=== PATIENT | male | born 2000 | race American Indian/Alaskan Native ===

== ENCOUNTER 2021-06-02 13:16 | Inpatient (IN) | payer BC, OTHER ==
--- OUTSIDE RECORDS SUMMARY | 2021-06-02 13:19 | XMS REPORT | Continuity of Care Document ---
:2000 Author Organization [facility] t Address [address] [place] [address] Care Team Providers Name Role Phone Guero Primary Care Physician Problems This patient has no known problems. Allergies, Adverse Reactions, Alerts This patient has no known allergies or adverse reactions. Social History Social Habit Start Date Stop Date Quantity Comments Source Sex Assigned At [facility] Tobacco use and 2017-01-31 2017-01-31 Never used [facility] - exposure 00:00:00 00:00:00 [facility] Alcohol intake 2017-01-31 2017-01-31 Current [facility] es - 00:00:00 00:00:00 non-drinker of [facility] nt alcohol (finding) Smoking Status Start Date Stop Date Source Never smoker [facility] Medications This patient has no known medications. Procedures This patient has no known procedures. Results Test Description Test Time Test Comments Results Result Comments Source TISSUE EXAM 2017-02-04 15:18:00 Test Item Value Reference Range Interpretation Comme nts LAB AP CPT CODE (GOLDEN) (test code = 1467) [id number]
[2021-06-02 14:39] LABS: Absolute Lymphocytes (CBC) 0.7 K/uL (0.7-4.9); Basophils % 0.2 % (0-1.3); Hematocrit 40.9 % (39.6-49.0); Lymphocytes % 10.5 % (15.3-44.8); MPV 8.9 fL (7.6-11.3); RBC Red Blood Cell Count 4.54 M/uL (4.33-5.43)
--- NOTE | 2021-06-02 14:44 | RAD REPORT ---
EXAM DESCRIPTION: RAD - Chest Single View - 06/02/2021 2:18 pm CLINICAL HISTORY: Cough;Congestion COMPARISON: No comparisons FINDINGS: Scattered bilateral ill-defined airspace opacities. The heart size is within normal limits .No acute osseous abnormality. No significant pleural effusions or pneumothorax. IMPRESSION: Ill-defined bilateral airspace disease which may reflect multifocal pneumonia, including Covid-19.
[2021-06-02 14:57] LABS: Protime INR 1.2
[2021-06-02 15:23] LABS: ALT/SGPT 43 U/L (12-78); AST/SGOT 49 U/L (15-37); Albumin 3.2 g/dL (3.4-5.0); Alkaline Phosphatase 52 U/L (45-117); BUN Blood Urea Nitrogen 14 mg/dL (7-18); Bicarbonate 26 mmol/L (21-32); Bilirubin Direct 0.4 mg/dL (0-0.2); Bilirubin Total 1.5 mg/dL (0.2-1.0); Glucose Level 98 mg/dL (74-106); Lipase 101 U/L (73-393); Potassium 3.6 mmol/L (3.5-5.1); Sodium Level 137 mmol/L (136-145); Troponin (Emerg Dept Use Only) < 0.02 ng/mL (0.0-0.045)
--- NOTE | 2021-06-02 16:16 | RAD REPORT ---
EXAM DESCRIPTION: CT - Chest For Pe Angio - 06/02/2021 3:46 pm CLINICAL HISTORY: DYSPNEA COMPARISON: No comparisons FINDINGS: Chest Wall: No suspicious thyroid nodules or pathologic lymphadenopathy. Lungs: Patchy bilateral airspace disease, moderate in severity. Pleura: No significant effusions or pneumothorax. Mediastinum/mar: No pathologic lymphadenopathy. Pulmonary arteries/Aorta: No filling defect identified. No aortic aneurysm. Heart: No significant pericardial effusion. Normal heart size. Upper abdomen: No acute abnormality. Bones: No acute abnormality. IMPRESSION: Negative for pulmonary embolism. Moderate bilateral airspace disease concerning for mult ifocal pneumonia, including Covid-19.
[2021-06-02 16:20] LABS: Ferritin 2591.3 ng/mL (26-388)
[2021-06-02] MEDS ORDERED: NA CHLORIDE 0.9% 1,000 ML ONE (16:47)
--- NOTE | 2021-06-02 16:47 | EDPHYS ---
Physician Documentation [facility] Name: Richard Hernandez Age: 21 yrs Sex: Male : 2000 Arrival Date: 06/02/2021 Time: 13:19 Bed 28 Private MD: ED Physician Dom Daugherty HPI: 06/02 13:34 This 21 yrs old Other Male presents to ER via Ambulatory with complaints of Breathing kb Difficulty - Covid +. 13:34 The patient has shortness of breath at rest. Onset: The symptoms/episode began/occurred kb 1 week(s) ago, and became worse today. Duration: The symptoms are continuous. The patient's shortness of breath is aggravated by exertion, is alleviated by nothing. Associated signs and symptoms: Pertinent positives: non-productive cough, fever. Severity of symptoms: At their worst the symptoms were moderate in the emergency department the symptoms are unchanged. The patient has not experienced similar symptoms in the past. The patient has not recently seen a physician. Pt reports he started having symptoms a week ago, tested positive for covid at [facility] on . Came in today because he the symptoms are getting worse and he passed out this morning. States he was breathing really fast, stood up quickly and passed out, falling to floor. Denies injury from fall. Reports cough, congestion, shortness of breath, chills. O2 sat at home 89%. Historical: - Allergies: 13:33 No Known Allergies; ll1 - PMHx: 13:33 None; ll1 - PSHx: 13:33 None; ll1 - Immunization history:: Client reports having NOT received the Covid vaccine. Flu vaccine is not up to date. - Social history:: Smoking status: Patient denies any tobacco usage or history of. ROS: 13:38 Abdomen/GI: Negative for abdominal pain, nausea, vomiting, diarrhea, and constipation. kb 13:38 Constitutional: Positive for chills, malaise. 13:38 Respiratory: Positive for cough, dyspnea on exertion, shortness of breath. 13:38 Neuro: Positive for syncope. 13:38 All other systems are negative. Exam: 13:38 Constitutional: This is a well developed, well nourished patient who is awake, alert, kb and in no acute distress. Head/Face: Normocephalic, atraumatic. ENT: Moist Mucous membranes Cardiovascular: Regular rate and rhythm with a normal S1 and S2. No gallops, murmurs, or rubs. No pulse deficits. Abdomen/GI: Soft, non-tender. No distention Skin: Warm, dry with normal turgor. Normal color. MS/ Extremity: Pulses equal, no cyanosis. Neurovascular intact. Full, normal range of motion. Neuro: Awake and alert, GCS 15, oriented to person, place, time, and situation. Moves all extremities. Normal gait. Psych: Awake, alert, with orientation to person, place and time. Behavior, mood, and affect are within normal limits. 13:38 Respiratory: the patient does not display signs of respiratory distress, Respirations: tachypnea, that is moderate, Breath sounds: are clear throughout. Vital Signs: 13:30 BP 112 / 69; Pulse 126; Resp 28; Temp 99.8; Pulse Ox 91% ; Weight 77.11 kg; Height 5 ss ft. 9 in. (175.26 cm); Pain 8/10; 14:31 BP 114 / 60; Pulse 111; Resp 24; Pulse Ox 98% on 3 lpm NC; tw2 15:29 BP 111 / 67; Pulse 122; Resp 22; Pulse Ox 99% on 3 lpm NC; tw2 16:30 BP 116 / 66; Pulse 109; Resp 22; Pulse Ox 98% on 3 lpm NC; hb 17:23 BP 120 / 65; Pulse 98; Resp 23; Pulse Ox 97% 3 lpm ; hb 18:15 BP 124 / 66; Pulse 92; Resp 19; Pulse Ox 98% on 2 lpm NC; hb 19:10 BP 113 / 78; Pulse 98; Resp 18; Pulse Ox 95% on 2 lpm NC; jb4 06/04 12:13 BP 124 / 84; Pulse 94; Resp 18; Temp 97.6(O); Pulse Ox 100% on 2 lpm NC; mh5 06/02 13:30 Body Mass Index 25.10 (77.11 kg, 175.26 cm) ss MDM: 06/02 13:32 Patient medically screened. sharon 13:34 Data reviewed: vital signs, nurses notes. Data interpreted: Pulse oximetry: on room air kb is 93 %. Interpretation: acceptable. 16:33 Counseling: I had a detailed discussion with the patient and/or guardian regarding: the kb historical points, exam findings, and any diagnostic results supporting the discharge/admit diagnosis, lab results, radiology results, the need for further work-up and treatment in the hospital. 16:46 Physician consultation: Alan Anyacrystal was contacted at 16:46, regarding admission, patient's condition, and will see patient in ED. 06/02 13:33 Order name: BMP 06/02 13:33 Order name: Blood Culture Adult (2) 06/02 13:33 Order name: C-Reactive Protein 06/02 13:33 Order name: CBC with Diff; Complete Time: 15:08 kb 06/02 13:33 Order name: D-Dimer; Complete Time: 15:21 kb 06/02 13:33 Order name: Ferritin; Complete Time: 16:22 kb 06/02 13:33 Order name: LFT's; Complete Time: 16:22 kb 06/02 13:33 Order name: Lactate; Complete Time: 15:02 kb 06/02 13:33 Order name: Lipase; Complete Time: 16:22 kb 06/02 13:33 Order name: PT-INR; Complete Time: 15:21 kb 06/02 13:33 Order name: Procalcitonin; Complete Time: 15:21 kb 06/02 13:33 Order name: Ptt, Activated; Complete Time: 15:21 kb 06/02 13:33 Order name: Troponin (emerg Dept Use Only); Complete Time: 16:22 kb 06/02 13:34 Order name: Basic Metabolic Panel; Complete Time: 16:22 EDDC 06/02 13:34 Order name: Blood Culture [facility] 06/02 13:34 Order name: C-Reactive Protein; Complete Time: 16:22 EDDC 06/03 06:28 Order name: CBC with Automated Diff EDDC 06/03 06:32 Order name: D-Dimer EDMS 06/03 06:48 Order name: Basic Metabolic Panel EDDC 06/03 06:48 Order name: Phosphorus EDMS 06/03 06:48 Order name: Lipid Profile EDMS 06/03 06:48 Order name: C-Reactive Protein EDMS 06/03 06:48 Order name: Magnesium EDMS 06/03 06:48 Order name: Ferritin EDMS 06/03 07:39 Order name: Urinalysis EDDC 07/18 12:04 Order name: CBC Smear Scan [facility] 06/04 03:57 Order name: CBC with Automated Diff EDDC 06/04 03:59 Order name: D-Dimer EDDC 06/04 04:14 Order name: C-Reactive Protein EDDC 06/04 04:14 Order name: Ferritin EDDC 06/02 13:33 Order name: CXR XRAY; Complete Time: 14:47 kb 06/02 13:33 Order name: EKG; Complete Time: 13:34 kb 06/02 13:33 Order name: Cardiac monitoring; Complete Time: 14:31 kb 06/02 13:33 Order name: Droplet/Contact Precautions; Complete Time: 14:31 kb 06/02 13:33 Order name: EKG - Nurse/Tech; Complete Time: 14:31 kb 06/02 13:33 Order name: IV Start; Complete Time: 14:31 kb 06/02 13:33 Order name: Labs collected and sent; Complete Time: 14:31 kb 06/02 13:33 Order name: O2 Per Protocol; Complete Time: 14:31 kb 06/02 13:33 Order name: O2 Sat Monitoring; Complete Time: 14:31 kb 06/02 15:12 Order name: CT Chest For PE Angio; Complete Time: 16:22 kb Administered Medications: 16:34 Drug: NS 0.9% 1000 ml Route: IV; Rate: 1000 ml; Site: right antecubital; tw2 Disposition Summary: 06/02/21 16:47 Hospitalization Ordered Hospitalization Status: Observation kb Provider: Alan Elias Condition: Stable kb Problem: new kb Symptoms: are unchanged kb Bed/Room Type: Standard Location: [facility] ER HOLD(06/02/21 20:12) bb Room Assignment: ERHOLD-(06/02/21 20:12) bb Diagnosis - Coronavirus infection, unspecified kb - Viral pneumonia, unspecified kb - Hypoxia kb Discharge Instructions: - Discharge Summary Sheet ca1 Forms: - Medication Reconciliation Form kb - SBAR form kb - Family Work Release ca1 Addendum: 06/05/2021 23:24 Co-signature as Attending Physician, Dom Daugherty MD I agree with the assessment and r n plan of care. Attestation: The patient's history, exam findings, diagnostics, and a summary of any interventions or procedures was reviewed in detail with Renetta Christoph [employer]ER G[employer]-C. Signatures: Dispatcher [employer] EDRenetta Escobar, BUYER GRAIN-C BUYER GRAIN-CkMeeta Adkins, RN RN bb Dom Daugherty MD MD rn Wise, Tara, RN RN tw2 Flores Mejia RN RN ll1 Corrections: (The following items were deleted from the chart) 06/02 14:17 13:34 Pt reports he started having symptoms a week ago, tested positive for covid at [facility] on . Came in today because he the symptoms are getting worse and he passed out this morning. States he was breathing really fast, stood up quickly and passed out, falling to floor. Denies injury from fall. Reports cough, congestion, shortness of breath, chills. . kb 20:12 16:47 Telemetry/MedSurg (observation) [facility] 20:12 16:47 [facility]
--- NOTE | 2021-06-02 16:47 | ER ---
Nurse's Notes [facility] Name: Richard Hernandez Age: 21 yrs Sex: Male : 2000 Arrival Date: 06/02/2021 Time: 13:19 Bed 28 Private MD: Diagnosis: Coronavirus infection, unspecified;Viral pneumonia, unspecified;Hypoxia Presentation: 06/02 13:30 Chief complaint: Patient states: Diagnosed with covid pneumonia at [place]. Has ll1 had symptoms for 1 week. +SOB and not getting better since taking his medications. Coronavirus screen: Client denies travel out of the [place] in the last 14 days. chills, congestion, cough unrelated to allergies, difficulty breathing, fatigue, fever, muscle pain, nausea, shaking with chills, shortness of breath, sore throat, loss of taste or smell, Client presents with at least one sign or symptom that may indicate coronavirus-19. Standard/surgical mask placed on the client. Ebola Screen: Patient denies travel to an Ebola-affected area in the 21 days before illness onset. Initial Sepsis Screen: Does the patient meet any 2 criteria? HR > 90 bpm. No. Patient's initial sepsis screen is negative. Does the patient have a suspected source of infection? Yes: Productive cough/pneumonia. Risk Assessment: Do you want to hurt yourself or someone else? Patient reports no desire to harm self or others. Onset of symptoms was May 26, 2021. 13:30 Method Of Arrival: Ambulatory ll1 13:30 Acuity: MARIANNE 3 ll1 Historical: - Allergies: 13:33 No Known Allergies; ll1 - PMHx: 13:33 None; ll1 - PSHx: 13:33 None; ll1 - Immunization history:: Client reports having NOT received the Covid vaccine. Flu vaccine is not up to date. - Social history:: Smoking status: Patient denies any tobacco usage or history of. Screenin:12 Abuse screen: Denies threats or abuse. Nutritional screening: No deficits noted. tw2 Tuberculosis screening: No symptoms or risk factors identified. Fall Risk None identified. Assessment: 14:11 Reassessment: xray at bedside at this time. tw2 14:32 General: Appears in no apparent distress. Behavior is calm, cooperative, appropriate tw2 for age. Pain: Denies pain. Neuro: Level of Consciousness is awake, alert, obeys commands, Oriented to person, place, time, situation. Cardiovascular: Rhythm is sinus tachycardia. Respiratory: Airway is patent Respiratory effort is even, unlabored, Respiratory pattern is regular, tachypnea Breath sounds are diminished bilaterally. Respiratory: Reports shortness of breath at rest on exertion cough that is non-productive, persistent. GI: No signs and/or symptoms were reported involving the gastrointestinal system. Abdomen is flat. : No signs and/or symptoms were reported regarding the genitourinary system. EENT:. Derm: No signs and/or symptoms reported regarding the dermatologic system. Musculoskeletal: Range of motion: intact in all extremities. 15:30 Reassessment: Patient appears in no apparent distress at this time. Patient and/or hb family updated on plan of care and expected duration. Pain level reassessed. Patient is alert, oriented x 3, equal unlabored respirations, skin warm/dry/pink. 16:30 Reassessment: Patient appears in no apparent distress at this time. Patient and/or hb family updated on plan of care and expected duration. Pain level reassessed. Patient is alert, oriented x 3, equal unlabored respirations, skin warm/dry/pink. 17:23 Reassessment: Patient appears in no apparent distress at this time. Patient and/or hb family updated on plan of care and expected duration. Pain level reassessed. Patient is alert, oriented x 3, equal unlabored respirations, skin warm/dry/pink. 18:45 Reassessment: Patient appears in no apparent distress at this time. Patient and/or hb family updated on plan of care and expected duration. Pain level reassessed. Patient is alert, oriented x 3, equal unlabored respirations, skin warm/dry/pink. 19:10 Reassessment: Patient appears in no apparent distress at this time. Patient and/or jb4 family updated on plan of care and expected duration. Pain level reassessed. Patient is alert, oriented x 3, equal unlabored respirations, skin warm/dry/pink. Vital Signs: 13:30 BP 112 / 69; Pulse 126; Resp 28; Temp 99.8; Pulse Ox 91% ; Weight 77.11 kg; Height 5 ss ft. 9 in. (175.26 cm); Pain 8/10; 14:31 BP 114 / 60; Pulse 111; Resp 24; Pulse Ox 98% on 3 lpm NC; tw2 15:29 BP 111 / 67; Pulse 122; Resp 22; Pulse Ox 99% on 3 lpm NC; tw2 16:30 BP 116 / 66; Pulse 109; Resp 22; Pulse Ox 98% on 3 lpm NC; hb 17:23 BP 120 / 65; Pulse 98; Resp 23; Pulse Ox 97% 3 lpm ; hb 18:15 BP 124 / 66; Pulse 92; Resp 19; Pulse Ox 98% on 2 lpm NC; hb 19:10 BP 113 / 78; Pulse 98; Resp 18; Pulse Ox 95% on 2 lpm NC; jb4 06/04 12:13 BP 124 / 84; Pulse 94; Resp 18; Temp 97.6(O); Pulse Ox 100% on 2 lpm NC; mh5 06/02 13:30 Body Mass Index 25.10 (77.11 kg, 175.26 cm) ED Course: 06/02 13:19 Patient arrived in ED. ds1 13:31 Renetta Hawthorne FNP-C is PHCP. kb 13:31 Dom Daugherty MD is Attending Physician. kb 13:33 Triage completed. ll1 13:34 Arm band placed on. ll1 13:52 Patient placed in an exam room, on a stretcher. ss 13:55 Bed in low position. Call light in reach. Pulse ox on. NIBP on. tw2 14:11 Feli Ro, RN is Primary Nurse. tw2 14:18 CXR XRAY In Process Unspecified. EDMS 14:25 Inserted saline lock: 20 gauge in right antecubital area, using aseptic technique. tw2 Blood collected. 15:46 CT Chest For PE Angio In Process Unspecified. EDMS 16:47 Alan Elias is Hospitalizing Provider. kb 19:10 No provider procedures requiring assistance completed. Patient admitted, IV remains in jb4 place. 06/03 06:48 Primary Nurse role handed off by Feli Ro, RIKI eb 06/04 12:15 IV discontinued, Pressure dressing applied. 5 Administered Medications: 06/02 16:34 Drug: NS 0.9% 1000 ml Route: IV; Rate: 1000 ml; Site: right antecubital; tw2 Outcome: 16:47 Decision to Hospitalize by Provider. kb 19:45 Admitted to ER Hold. Please see [facility] for further documentation. jb4 19:45 Condition: stable 19:45 Discharge instructions given to patient, Instructed on the need for admit, Demonstrated understanding of instructions. 06/04 15:37 Patient left the ED. aa5 Signatures: Dispatcher [employer] EDMS Renetta Hawthorne, INFORMATION SYSTEMS SUPERVISOR-C INFORMATION SYSTEMS SUPERVISOR-Ckb Judie Duron ds1 Beverly Matthews, RN RN aa5 Jessica Rea RN RN Luz Maldonado RN RN Feli Ro RN RN tw2 Lucio Arriaza RN RN jb4 Sanjuanita Rhodes [facility] Desire Hamm Lynsay, RN RN ll1 Corrections: (The following items were deleted from the chart) 06/02 13:38 13:30 BP 112 / 69; Pulse 126bpm; Resp 18bpm; Pulse Ox 93%; Temp 99.8F; 77.11 kg; Height ll1 5 ft. 9 in.; BMI: 25.1; Pain 8/10; ll1 13:42 13:30 BP 112 / 69; Pulse 126bpm; Resp 28bpm; Pulse Ox 93%; Temp 99.8F; 77.11 kg; Height ss 5 ft. 9 in.; BMI: 25.1; Pain 8/10; ll1
[2021-06-02] MEDS ORDERED: dexAMETHasone 10 MG/ML VIAL ONE (17:16)
[2021-06-02] MEDS ORDERED: KETOROLAC 30 MG/ML INJ ONE (17:16)
--- NOTE | 2021-06-02 18:34 | P.HP ---
Certification for Inpatient Patient admitted to: Inpatient With expected LOS: >2 Midnights Practitioner: I am a practitioner with admitting privileges, knowledge of patient current condition, hospital course, and medical plan of care. Services: Services provided to patient in accordance with Admission requirements found in Title 42 Section 412.3 of the Code of Federal Regulations Patient History Date of Service: 06/02/21 Reason for admission: Shortness of breath History of Present Illness: 21-year-old gentleman with no known past medical history presented emergency department with a complaint of cough and progressive shortness of breath. Symptoms started a week ago. Patient tested positive for COVID 19 a few days ago and since then his symptoms has been getting progressively worse. Chest x-ray in the ED demonstrated bilateral pneumonia. Patient hypoxic on room air with oxygen saturation at 88%. He is admitted for further management. - Past Medical/Surgical History -: None -: None - Family History Mother -: Diabetes - Social History Smoking Status: Never smoker Alcohol use: No CD- Drugs: No Place of Residence: Home Review of Systems Other: Except as documented, all other systems reviewed and negative. Physical Examination - Physical Exam General: Alert, In no apparent distress, Oriented x3 HEENT: Normocephalic, Mucous membr. moist/pink, Sclerae nonicteric Neck: Supple, JVD not distended Respiratory: Clear to auscultation bilaterally, Normal air movement Cardiovascular: No edema, Regular rate/rhythm, Normal S1 S2 Gastrointestinal: Soft and benign, Non-distended, No tenderness Musculoskeletal: No swelling, No tenderness Integumentary: No rashes, No erythema Neurological: Normal speech, Normal strength at 5/5 x4 extr, Cranial nerves 3-12 intact Lymphatics: No axilla or inguinal lymphadenopathy - Studies Laboratory Data (last 24 hrs) 06/02/21 14:20: PT 13.8 H, INR 1.20, APTT 30.7 06/02/21 14:20: WBC 6.70, Hgb 14.1, Hct 40.9, Plt Count 164 06/02/21 14:20: Sodium 137, Potassium 3.6, BUN 14, Creatinine 1.05, Glucose 98, Total Bilirubin 1.5 H, AST 49 H, ALT 43, Alkaline Phosphatase 52, Lipase 101 Assessment and Plan - Problems (Diagnosis) (1) Pneumonia due to 2019 novel coronavirus Current Visit: Yes Status: Acute (2) Acute respiratory failure with hypoxia Current Visit: Yes Status: Acute - Plan Admit to the medical floor. Start supportive measures. Titrate oxygen Start IV steroid, vitamins and zinc supplementation. Consult to pulmonary. Ivermectin. Monitor oxygen requirement. - Advance Directives Does patient have a Living Will: No Does patient have a Durable POA for Healthcare: No
[2021-06-03] MEDS: METHYLPREDNISOLONE 40 MG INJ IV SCH ×3 (01:29→21:00)
[2021-06-03] MEDS: ASCORBIC ACID 500 MG TABLET PO SCH ×3 (01:29→21:00)
[2021-06-03] MEDS ORDERED: ACETAMINOPHEN 500 MG TAB PO PRN (01:29)
[2021-06-03] MEDS: FAMOTIDINE 20 MG/2 ML VIAL IV SCH ×3 (01:29→21:00)
[2021-06-03] MEDS ORDERED: ONDANSETRON 4 MG/2 ML VIAL IV PRN (01:29)
[2021-06-03] MEDS ORDERED: METHYLPREDNISOLONE 40 MG INJ ONE ×3 (02:56→22:43)
[2021-06-03] MEDS ORDERED: ASCORBIC ACID 500 MG TABLET ONE ×4 (02:56→22:43)
[2021-06-03] MEDS ORDERED: ACETAMINOPHEN 500 MG TAB ONE (02:56)
[2021-06-03] MEDS ORDERED: FAMOTIDINE 20 MG/2 ML VIAL IV ONE ×3 (02:57→22:43)
[2021-06-03 03:29] VITALS: BMI 25.1
[2021-06-03 06:21] LABS: Absolute Lymphocytes (CBC) 0.4 K/uL (0.7-4.9); Basophils % 0.1 % (0-1.3); Hematocrit 40.5 % (39.6-49.0); Lymphocytes % 5.8 % (15.3-44.8); MPV 8.7 fL (7.6-11.3); RBC Red Blood Cell Count 4.47 M/uL (4.33-5.43)
[2021-06-03 06:48] LABS: BUN Blood Urea Nitrogen 11 mg/dL (7-18); Bicarbonate 29 mmol/L (21-32); Ferritin 2689.2 ng/mL (26-388); Glucose Level 139 mg/dL (74-106); HDL Cholesterol 18 mg/dL (40-60); LDL Cholesterol, Calculated 76 (<130); Magnesium 2.3 mg/dL (1.8-2.4); Phosphorus 3.1 mg/dL (2.5-4.9); Sodium Level 138 mmol/L (136-145)
[2021-06-03 07:33] LABS: Urine Appearance CLEAR (Clear); Urine Bilirubin NEGATIVE (Negative); Urine Blood NEGATIVE (Negative); Urine Color YELLOW (Yellow); Urine Glucose NEGATIVE (Negative); Urine Protein NEGATIVE (Negative); Urine Specific Gravity 1.015 (1.005-1.030); Urine pH 6.5 (5.0-7.0)
[2021-06-03 07:39] LABS: Urine Microscopic Reflex NO UMIC
[2021-06-03] MEDS ORDERED: METHYLPREDNISOLONE 125 MG INJ ONE (07:40)
[2021-06-03] MEDS ORDERED: ZINC SULFATE 220 MG CAP ONE (07:40)
[2021-06-03] MEDS ORDERED: VITAMIN D 1000 UNIT TAB ONE (07:40)
[2021-06-03] MEDS ORDERED: ENOXAPARIN 40 MG/0.4 ML SQ ONE (07:41)
[2021-06-03] MEDS: ZINC SULFATE 220 MG CAP PO SCH (08:08)
[2021-06-03] MEDS: ENOXAPARIN 40 MG/0.4 ML SQ SCH (08:08)
[2021-06-03] MEDS: VITAMIN D 5,000 UNIT CAP PO SCH (08:53)
[2021-06-03 12:00] LABS: Blood Morphology Comment NOT SEEN (NOT SEEN); Platelet Estimate ADEQ; White Blood Cell Scan OK (OK)
--- NOTE | 2021-06-03 16:17 | P.PN ---
Subjective Date of Service: 06/03/21 Chief Complaint: Shortness of breath Patient states he feels better. He is currently tolerating 2 L oxygen by nasal cannula. Physical Examination - Vital Signs Temperature: 97.9 F Blood Pressure: 112/71 Pulse: 105 Respirations: 25 Pulse Ox (%): 93 - Physical Exam General: Alert, In no apparent distress HEENT: Other (Oxygen by nasal cannula) Neck: JVD not distended Respiratory: Other (Nonlabored breathing) Cardiovascular: No edema, Regular rate/rhythm, Normal S1 S2 Gastrointestinal: Soft and benign, Non-distended Musculoskeletal: No swelling Integumentary: No rashes Neurological: Other (No focal motor deficit.) Assessment And Plan - Current Problems (Diagnosis) (1) Pneumonia due to 2019 novel coronavirus Current Visit: Yes Status: Acute (2) Acute respiratory failure with hypoxia Current Visit: Yes Status: Acute - Plan Continue IV steroid, vitamins and zinc supplementation for COVID pneumonia protocol. Consult to pulmonary. Ivermectin Q48H x 2 doses. Wean oxygen as tolerated.
[2021-06-04] MEDS: BENZONATATE 100 MG CAP PO PRN ×2 (01:17→08:22)
[2021-06-04] MEDS ORDERED: LEVALBUTEROL 1.25 MG/3 ML NEB ONE (01:20)
[2021-06-04] MEDS ORDERED: BENZONATATE 100 MG CAP PO ONE ×2 (01:31→08:04)
[2021-06-04] MEDS: ALBUTEROL 2.5 MG/3 ML NEB SOL NEB SCH ×3 (02:00→14:20)
[2021-06-04 03:49] LABS: Absolute Lymphocytes (CBC) 0.4 K/uL (0.7-4.9); Basophils % 0.1 % (0-1.3); Hematocrit 40.7 % (39.6-49.0); Lymphocytes % 3.2 % (15.3-44.8); MPV 8.8 fL (7.6-11.3)
[2021-06-04 04:14] LABS: C-Reactive Protein 50.2 mg/L (<3.00); Ferritin 2440.8 ng/mL (26-388)
[2021-06-04] MEDS ORDERED: ASCORBIC ACID 500 MG TABLET ONE (08:05)
[2021-06-04] MEDS ORDERED: METHYLPREDNISOLONE 40 MG INJ ONE (08:05)
[2021-06-04] MEDS ORDERED: VITAMIN D 1000 UNIT TAB ONE (08:05)
[2021-06-04] MEDS ORDERED: ZINC SULFATE 220 MG CAP ONE (08:05)
[2021-06-04] MEDS ORDERED: FAMOTIDINE 20 MG/2 ML VIAL IV ONE (08:06)
[2021-06-04] MEDS ORDERED: ENOXAPARIN 40 MG/0.4 ML SQ ONE (08:06)
[2021-06-04] MEDS: ASCORBIC ACID 500 MG TABLET PO SCH (08:22)
[2021-06-04] MEDS: ENOXAPARIN 40 MG/0.4 ML SQ SCH (08:22)
[2021-06-04] MEDS: VITAMIN D 5,000 UNIT CAP PO SCH (08:22)
[2021-06-04] MEDS: METHYLPREDNISOLONE 40 MG INJ IV SCH (08:22)
[2021-06-04] MEDS: ZINC SULFATE 220 MG CAP PO SCH (08:22)
[2021-06-04] MEDS: FAMOTIDINE 20 MG/2 ML VIAL IV SCH (08:22)
[2021-06-04] MEDS ORDERED: ALBUTEROL 2.5 MG/3 ML NEB SOL ONE ×2 (08:24→14:36)
[2021-06-04] MEDS ORDERED: IVERMECTIN 3 MG TABLET PO SCH (09:00)
--- NOTE | 2021-06-04 11:07 | P.DS ---
Admission Date: 06/02/21 Discharge Date: 06/04/21 Disposition: ROUTINE DISCHARGE Discharge Condition: FAIR Reason for Admission: Shortness of breath - Problems (1) Pneumonia due to 2019 novel coronavirus Current Visit: Yes Status: Acute (2) Acute respiratory failure with hypoxia Current Visit: Yes Status: Acute Brief History of Present Illness: 21-year-old gentleman with no known past medical history presented emergency department with a complaint of cough and progressive shortness of breath. Symptoms started a week ago. Patient tested positive for COVID 19 a few days ago and since then his symptoms has been getting progressively worse. Chest x-ray in the ED demonstrated bilateral pneumonia. Patient hypoxic on room air with oxygen saturation at 88%. He was admitted for further management. Hospital Course: Patient admitted to the medical floor and treated for COVID pneumonia with IV steroid, bronchodilators, vitamins, zinc supplementation. Patient given a dose of Ivermectin and placed on oxygen. He was clinically stable on treatment. He was weaned off oxygen. Patient no longer hypoxic on room air. His condition is stable. He is discharged with oral prednisone, vitamin-C and zinc supplementation. He is prescribed one. more dose of Ivermectin. Vital Signs/Physical Exam: Temp Pulse Resp BP Pulse Ox 98.3 F 87 20 119/78 98 06/04/21 08:00 06/04/21 08:00 06/04/21 08:00 06/04/21 08:00 06/04/21 08:00 General: Alert, In no apparent distress HEENT: Mucous membr. moist/pink Neck: JVD not distended Respiratory: Other (Nonlabored pre) Cardiovascular: Regular rate/rhythm, Normal S1 S2 Gastrointestinal: Soft and benign, Non-distended, No tenderness Musculoskeletal: No swelling Integumentary: No rashes Neurological: Normal strength at 5/5 x4 extr Laboratory Data at Discharge: WBC 11.80 K/uL (4.3-10.9) H D 06/04/21 03:05 Hgb 13.9 g/dL (13.6-17.9) 06/04/21 03:05 Hct 40.7 % (39.6-49.0) 06/04/21 03:05 Plt Count 244 K/uL (152-406) D 06/04/21 03:05 PT 13.8 SECONDS (9.5-12.5) H 06/02/21 14:20 INR 1.20 06/02/21 14:20 APTT 30.7 SECONDS (24.3-36.9) 06/02/21 14:20 Sodium 138 mmol/L (136-145) 06/03/21 05:50 Potassium 4.0 mmol/L (3.5-5.1) 06/03/21 05:50 BUN 11 mg/dL (7-18) 06/03/21 05:50 Creatinine 0.89 mg/dL (0.55-1.3) 06/03/21 05:50 Glucose 139 mg/dL (74-106) H 06/03/21 05:50 Phosphorus 3.1 mg/dL (2.5-4.9) 06/03/21 05:50 Magnesium 2.3 mg/dL (1.8-2.4) 06/03/21 05:50 Total Bilirubin 1.5 mg/dL (0.2-1.0) H 06/02/21 14:20 AST 49 U/L (15-37) H 06/02/21 14:20 ALT 43 U/L (12-78) 06/02/21 14:20 Alkaline Phosphatase 52 U/L (45-117) 06/02/21 14:20 Triglycerides 122 mg/dL (<150) 06/03/21 05:50 Cholesterol 118 mg/dL (<200) 06/03/21 05:50 HDL Cholesterol 18 mg/dL (40-60) L 06/03/21 05:50 Cholesterol/HDL Ratio 6.56 06/03/21 05:50 Lipase 101 U/L (73-393) 06/02/21 14:20 Home Medications: Ascorbic Acid [Vitamin C*] 1,000 mg PO BID #120 tablet 06/04/21 Aspirin [Aspirin EC 81 MG] 162 mg PO DAILY #60 tablet. 06/04/21 Benzonatate [Tessalon Perle*] 100 mg PO TID PRN #30 cap 06/04/21 Cholecalciferol (Vitamin D3) [Vitamin D 5,000 IU Cap*] 5,000 unit PO DAILY #30 cap 06/04/21 Ivermectin 12 mg PO ONCE #4 tablet 06/04/21 Zinc Sulfate [Zinc Sulfate*] 220 mg PO DAILY #30 cap 06/04/21 predniSONE [Deltasone] 20 mg PO BID #21 tab 06/04/21 New Medications: Aspirin [Aspirin EC 81 MG] 162 mg PO DAILY #60 tablet. Ivermectin 12 mg PO ONCE #4 tablet predniSONE [Deltasone] 20 mg PO BID #21 tab Benzonatate [Tessalon Perle*] 100 mg PO TID PRN #30 cap PRN Reason: Cough Ascorbic Acid [Vitamin C*] 1,000 mg PO BID #120 tablet Cholecalciferol (Vitamin D3) [Vitamin D 5,000 IU Cap*] 5,000 unit PO DAILY #30 cap Zinc Sulfate [Zinc Sulfate*] 220 mg PO DAILY #30 cap Diet: Regular Activity: Ad joe Followup: NONE,NONE [Primary Care Provider] - Alen Gonzalez MD [ACTIVE - CAN ADMIT] - 1 Week Time spent managing pt's care (in minutes): 34
[2021-06-04 13:16] VITALS: TEMP 97.6
[2021-06-04 16:04] VITALS: BP 124/84; O2SAT 100
--- NOTE | 2021-06-05 11:44 | P.CNS ---
Date of Consult: 06/03/21 (TV) Reason for Consult: COVID penumonia Chief Complaint: Shortness of breath History of Present Illness: Age 21 AW COVID penumonia/ Not vaccineated. Worse past week. CT Reviewed/ Doing wellon steroids/ hypoxic on steroids/ Pos for COVID a week ago Allergies No Known Allergies Allergy (Unverified 06/03/21 01:29) Home Medications: Ascorbic Acid [Vitamin C*] 1,000 mg PO BID #120 tablet 06/04/21 Aspirin [Aspirin EC 81 MG] 162 mg PO DAILY #60 tablet. 06/04/21 Benzonatate [Tessalon Perle*] 100 mg PO TID PRN #30 cap 06/04/21 Cholecalciferol (Vitamin D3) [Vitamin D 5,000 IU Cap*] 5,000 unit PO DAILY #30 cap 06/04/21 Ivermectin 12 mg PO ONCE #4 tablet 06/04/21 Zinc Sulfate [Zinc Sulfate*] 220 mg PO DAILY #30 cap 06/04/21 predniSONE [Deltasone] 20 mg PO BID #21 tab 06/04/21 - Past Medical/Surgical History -: None -: None - Family History Mother Medical History: Diabetes - Social History Alcohol use: No CD- Drugs: No Place of Residence: Home Physical Examination Temp Pulse Resp BP Pulse Ox 97.6 F 94 H 18 124/84 100 06/04/21 12:13 06/04/21 12:13 06/04/21 12:13 06/04/21 12:13 06/04/21 12:00 - Problems (1) Pneumonia due to 2019 novel coronavirus Status: Acute Plan: Age 21 AW COVID penumonai/ responding to steroids/ Poss DC am/ Labs and CT rev/ DW DR Spencer and nursing staff Ferritin and CRP eleated/ poss DC am on pred for 2 wksand asprin/ CW ivermectin
== END 2021-06-04 15:00 | disposition home or self-care (01) | DRG 177 ==
LOC: ER 13:16 → ERHOLD 17:50
PROVIDERS: ADMIT Internal Medicine; ATTEND Internal Medicine
DX: U07.1 COVID-19 (principal); J12.82 Pneumonia due to coronavirus disease 2019; J96.01 Acute respiratory failure with hypoxia; Z79.82 Long term (current) use of aspirin; Z79.52 Long term (current) use of systemic steroids
CPT/HCPCS: 36415; 71045; 71275; 80048; 80061; 80076; 81003; 82728; 83605; 83690; 83735; 84100; 84145; 84484; 85025; 85379; 85610; 85730; 86140; 87040; 93005; 94640; 94760; 99285; J1100; J1650; J2920; J2930; J7030; Q9967